=== PATIENT | male | born 1995 | race Caucasian/White ===

== ENCOUNTER 2018-09-22 08:33 | Emergency (ER) | payer BC ==
[~2018-09-22] VITALS: Ht 177.8 cm; Wt 111.2 kg
[2018-09-22 08:36] VITALS: Ht 177.8 cm; Wt 111.2 kg
[2018-09-22] MEDS ORDERED: SODIUM CHLORIDE 0.9% 1L BAG IV* STA (08:42)
[2018-09-22] MEDS ORDERED: KETOROLAC 15 MG INJ IV STA (08:42)
[2018-09-22] MEDS ORDERED: ACETAMINOPHEN 325 MG TAB PO ONE (09:00)
--- NOTE | 2018-09-22 09:48 | ERD ---
ER Documentation Chief Complaint Chief Complaint Pt presents with fever and R groin pain R L leg pain since last night HPI This is a 22-year-old male with no significant chronic past medical history who is presenting with 1 day of fever, feeling generally unwell, right-sided leg pain with lower leg redness and tenderness. The patient reports that this happened once before, and it was associated with a bug bite and cellulitis. He believes this is what is going on today. He does not endorse any alleviating or exacerbating factors. He does not recall being bit by a bug. The patient has had no headache or vision changes. The patient does not endorse neck or back pain. The patient denies lightheadedness or dizziness. The patient has had no chest pain or trouble breathing. The patient denies nausea or vomiting. The patient denies abdominal pain. The patient denies changes to bowel movements or urination. The patient has had no focal deficits. The patient has had no weakness or numbness or tingling to the face or extremities. ROS All systems reviewed and are negative except as per history of present illness. Medications Home Meds Discontinued Reported Medications [None] No Conflict Check 06/27/10 Allergies Allergies: Coded Allergies: No Known Allergies (Verified Allergy, Mild, 09/22/18) PMhx/Soc History of Surgery: Yes (Facial surgery) Anesthesia Reaction: No Hx Neurological Disorder: No Hx Respiratory Disorders: No Hx Cardiac Disorders: No Hx Psychiatric Problems: No Hx Miscellaneous Medical Probl: No Hx Alcohol Use: No Hx Substance Use: No Hx Tobacco Use: No FmHx Family History: No diabetes Physical Exam Vitals Vital Signs Date Temp Pulse Resp B/P (MAP) Pulse Ox O2 O2 Flow FiO2 Time Delivery Rate 09/22/18 Nasal 2 10:04 Cannula 09/22/18 102.2 124 20 141/76 98 08:36 (97) Physical Exam Const: No acute distress Head: Atraumatic Eyes: Normal Conjunctiva ENT: Normal External Ears, Nose and Mouth. Neck: Full range of motion. No meningismus. Resp: Clear to auscultation bilaterally Cardio: Regular rhythm, mild tachycardia, no murmurs Abd: Obese, soft, non tender, non distended. Normal bowel sounds Skin: No petechiae. 6 cm of erythema and tenderness to the right beaver, no induration or purulence or fluctuance. Back: No midline or flank tenderness Ext: No cyanosis, or edema Neur: Awake and alert Psych: Normal Mood and Affect Result Diagram: 09/22/18 0853 09/22/18 0853 Results 24 hrs Laboratory Tests Test 09/22/18 08:53 White Blood Count 17.4 10^3/ul Red Blood Count 5.68 10^6/ul Hemoglobin 15.9 g/dl Hematocrit 45.4 % Mean Corpuscular Volume 79.9 fl Mean Corpuscular Hemoglobin 28.0 pg Mean Corpuscular Hemoglobin Concent 35.0 g/dl Red Cell Distribution Width 12.9 % Platelet Count 250 10^3/UL Mean Platelet Volume 10.2 fl Immature Granulocytes % 0.500 % Neutrophils % 87.2 % Lymphocytes % 5.5 % Monocytes % 6.5 % Eosinophils % 0.1 % Basophils % 0.2 % Nucleated Red Blood Cells % 0.0 /100WBC Immature Granulocytes # 0.080 10^3/ul Neutrophils # 15.2 10^3/ul Lymphocytes # 1.0 10^3/ul Monocytes # 1.1 10^3/ul Eosinophils # 0.0 10^3/ul Basophils # 0.0 10^3/ul Nucleated Red Blood Cells # 0.0 10^3/ul Sodium Level 139 mmol/L Potassium Level 4.3 mmol/L Chloride Level 106 mmol/L Carbon Dioxide Level 27 mmol/L Anion Gap 6 Blood Urea Nitrogen 20 mg/dl Creatinine 0.80 mg/dl Est Glomerular Filtrat Rate mL/min > 60 mL/min Glucose Level 117 mg/dl POC Venous Lactate 1.5 mmol/L Calcium Level 9.3 mg/dl Total Bilirubin 1.1 mg/dl Direct Bilirubin 0.00 mg/dl Indirect Bilirubin 1.1 mg/dl Aspartate Amino Transf (AST/SGOT) 29 IU/L Alanine Aminotransferase (ALT/SGPT) 49 IU/L Alkaline Phosphatase 71 IU/L Total Protein 7.9 g/dl Albumin 4.2 g/dl Globulin 3.70 g/dl Albumin/Globulin Ratio 1.13 Current Medications Medications Dose Sig/Jermaine Start Time Status Last (Trade) Ordered Route PRN Stop Time Admin Dose Reason Admin Sodium 2,190 ml BOLUS OVER 2 09/22/18 DC 09/22/18 Chloride HOURS STAT 08:42 09/22/18 08:42 (NS) IV* 08:44 650 mg ONCE ONCE 5/9/19 DC 09/22/18 Acetaminophen PO 09:00 09/22/18 09:49 (Tylenol 09:01 Tab) Ketorolac 15 mg ONCE STAT 09/22/18 DC 09/22/18 Tromethamine IV 08:42 09/22/18 08:56 (Toradol) 08:44 Procedures/MDM MDM The patient's presentation warrants further investigation. Previous medical records, if available, were reviewed. LABS The patient's laboratory testing was obtained and reviewed. No emergent treatment was required unless described below. CBC: Leukocytosis with shift, concerning for an infection. No E/o anemia or thrombocytopenia Chemistry: No E/o severe acidosis or alkalosis or renal failure or liver disease or diabetic ketoacidosis Lactate: No E/o severe sepsis EKG EKG read by me: Rate/Rhythm: Sinus tachycardia at 112 bpm Intervals: Normal Mccormick: Normal Impression: No evidence of ischemia. Sinus tachycardia IMAGING Imaging and Radiology interpretation reviewed. CXR FINDINGS: The heart and mediastinum are within normal limits. The lungs are clear. There is no pleural effusion or pneumothorax. IMPRESSION: No acute disease Electronically viewed and signed by Dallin Ellsworth MD on 09/22/2018 08:58 TREATMENT/DISPOSITION Patient presents for symptoms concerning for possible cellulitis. The patient does have a leukocytosis and was mildly tachycardic. The patient did meet criteria for SIRS, so a septic work-up was completed. Patient does not have any evidence of endorgan damage. The patient's lactic acid is within normal limits. The patient does not have evidence of sepsis. The patient does not require inpatient evaluation. I do not see evidence of abscess. I do not see evidence of an alternative soft tissue infection. The patient has no lower extremity edema. He has not been bedbound for any reason. He does not have any history of DVT or PE. He is not on any hormonal medications. There is no reason to suspect DVT or thrombophlebitis. The patient was treated with IV fluids, Tylenol and Toradol in the emergency department with improvement of his temperature and heart rate. DISCHARGE Upon reevaluation of the patient, symptoms have improved. No emergent diagnoses were identified. At this time, I feel that the patient stable for discharge. The patient was instructed to follow-up with a primary care physician in 1-3 days. The patient will be given strict precautions with which to return to the emergency department. Prescriptions: Keflex, ibuprofen The patient's blood pressure was elevated at greater than 120/80 while in the emergency department. The patient was otherwise stable with no evidence of hypertensive urgency or emergency. The patient does not require admission for blood pressure control. I have discussed with the patient the risks of hypertension. I have instructed the patient to return to the ER for any new or worsening symptoms including chest pain, shortness of breath, headache, blurred vision, confusion, nausea, vomiting or LOC. I have advised the patient to follow up with the primary care physician for outpatient monitoring and treatment for h ypertension in 1-3 days. Disclaimer: Inadvertent spelling and grammatical errors are likely due to EHR/dictation software use and do not reflect on the overall quality of patient care. Note that the electronic time recorded on this note does not necessarily reflect the actual time of the patient encounter. Departure Diagnosis: Primary Impression: Cellulitis Site of cellulitis: extremity Site of cellulitis of extremity: lower extremity Laterality: right Qualified Codes: L03.115 - Cellulitis of right lower limb Additional Impressions: Fever Fever type: unspecified Qualified Codes: R50.9 - Fever, unspecified Tachycardia Leukocytosis Leukocytosis type: unspecified Qualified Codes: D72.829 - Elevated white blood cell count, unspecified Condition: Stable Patient Instructions: Cellulitis, Fever Control (Adult), Sinus Tachycardia Additional Instructions: Thank you for for coming to [facility] for your care today. Please ask your nurse or provider if you have questions about your care today and do not leave until all your questions have been answered. Please use any medications given as directed and follow-up with your doctor (or the doctor you were referred to) in the next 1-3 days. If you do not have a primary care doctor you may follow up at the [facility] or [facility] (listed below). You may also use motrin and tylenol as needed for fever and/or pain unless instructed otherwise by your provider or nurse. Indications for more urgent follow-up have been discussed, but you may return to the Emergency Department at ANY time for any worrisome or worsening symptoms. If you have abdominal pain, please know that no test or exam you received is perfect and you should follow up within 8 hours for continued pain. If you had any imaging studies today, such as an X-Ray or CT Scan, these studies will be reviewed later by a radiologist. You will be called if there are important findings that were not identified today, so make sure the contact information you provided at registration is correct. If you received any narcotic pain control medicine today, such as Vicodin, Morphine or Dilaudid, your coordination and judgment may be affected for a number of hours. Please do not drive or operate heavy machinery, and you may want someone to assist you at home. If you were given a prescription for narcotic medication, be aware that it is very addictive- use sparingly and only if necessary. PLEASE SEEK FURTHER EVALUATION AND MANAGEMENT AT YOUR DOCTORS OFFICE WITHIN THE NEXT 1-3 DAYS. IT IS YOUR RESPONSIBILITY TO MAKE AN APPOINTMENT FOR FOLOW-UP CARE. IF YOU HAVE A PRIMARY DOCTOR, PLEASE CALL THEIR OFFICE TO SCHEDULE AN APPOINTMENT FOR FOLLOW UP. IF YOU DO NOT HAVE A PRIMARY DOCTOR YOU CAN CALL OUR PHYSICIAN REFERRAL HOTLINE AT IF YOU CAN NOT AFFORD TO SEE A PHYSICIAN YOU CAN CHOSE FROM THE FOLLOWING [facility] CLINICS: [facility] [address] [facility]. [facility] [address] [facility] [facility] [address] [facility] [facility] [address] [facility] [facility] [address] [facility]. [facility]. [address] MAIN SHERMAN MD September 22, 2018 09:48
[2018-09-22] MEDS ORDERED: CEPH-443 PO (11:11)
[2018-09-22] MEDS ORDERED: ONDA8TAB9 PO (11:11)
[2018-09-22] MEDS ORDERED: IBUP-1542 PO (11:11)
[2018-09-22 11:26] VITALS: BP 115/55; PULSE 100; RESP 18
[2018-09-23] MEDS ORDERED: SULF1TAB31 PO (11:18)
== END 2018-09-22 11:28 | disposition home or self-care (01) ==
LOC: E/R 08:33
DX: L03.115 Cellulitis of right lower limb (principal); R50.9 Fever, unspecified; R00.0 Tachycardia, unspecified; D72.829 Elevated white blood cell count, unspecified
CPT/HCPCS: 36415; 71045; 80053; 83605; 85025; 87040; 93005; 96374; J1885; J7030; Z7502; Z7610

== ENCOUNTER 2018-09-23 09:04 | Emergency (ER) | payer BC ==
[~2018-09-23] VITALS: Ht 180.3 cm; Wt 130.0 kg
[~2018-09-23 09:04] MED LIST: CEPH-443 PO; IBUP-1542 PO; ONDA8TAB9 PO
[2018-09-23 09:05] VITALS: Ht 180.3 cm; Wt 130.0 kg
[2018-09-23] MEDS ORDERED: CEFTRIAXONE 1 GM/50 ML (PMX) 50 ML IVPB STA (09:31)
[2018-09-23] MEDS ORDERED: TRIMETHOPRIM/SULFAMETHOX (DS) TAB PO ONE (11:00)
[2018-09-23] MEDS ORDERED: SULF1TAB31 PO (11:18)
--- NOTE | 2018-09-23 11:21 | ERD ---
ER Documentation Chief Complaint Chief Complaint right leg/ upper thigh cellulits HPI 22-year-old male was seen here yesterday for some right beaver redness. He had a fever at that time. Negative lactate. He was discharged home with a prescription of Keflex. He did not receive IV antibiotics. Fever is resolved. There is some slight extension of the redness outside of the area marked and a new lesion on the right proximal thigh. He denies any chest pain, shortness of breath and otherwise pain is improved as well. She denies any lacerations, insect bites, inciting events. Patient had a leukocytosis of 17 yesterday. ROS All systems reviewed and are negative except as per history of present illness. Medications Home Meds Active Scripts Sulfamethoxazole/Trimethoprim* (Bactrim Ds* Tablet) 1 Each Tablet, 1 TAB PO BID for 7 Days, #14 TAB Prov:TRICIA RUIZ MD 09/23/18 Ondansetron Hcl* (Zofran*) 8 Mg Tablet, 8 MG PO Q6H PRN for NAUSEA AND OR VOMITING, #20 TAB Prov:MAIN MCKEON MD 09/22/18 Ibuprofen* (Motrin*) 600 Mg Tab, 600 MG PO Q6H PRN for PAIN AND OR ELEVATED TEMP, #30 TAB Prov:MAIN MCKEON MD 09/22/18 Cephalexin* (Keflex*) 500 Mg Capsule, 500 MG PO QID for 7 Days, CAP Prov:MAIN MCKEON MD 09/22/18 Discontinued Reported Medications [None] No Conflict Check 06/27/10 Allergies Allergies: Coded Allergies: No Known Allergies (Verified Allergy, Mild, 09/22/18) PMhx/Soc History of Surgery: Yes (Facial surgery) Anesthesia Reaction: No Hx Neurological Disorder: No Hx Respiratory Disorders: No Hx Cardiac Disorders: No Hx Psychiatric Problems: No Hx Miscellaneous Medical Probl: No Hx Alcohol Use: No Hx Substance Use: No Hx Tobacco Use: No FmHx Family History: No diabetes, No coronary disease, No other Physical Exam Vitals Vital Signs Date Temp Pulse Resp B/P (MAP) Pulse Ox O2 O2 Flow FiO2 Time Delivery Rate 09/23/18 98.8 96 19 119/59 99 09:05 (79) Physical Exam Const: No acute distress Head: Atraumatic Eyes: Normal Conjunctiva ENT: Normal External Ears, Nose and Mouth. Neck: Full range of motion. No meningismus. Resp: Clear to auscultation bilaterally Cardio: Regular rate and rhythm, no murmurs Abd: Soft, non tender, non distended. Normal bowel sounds Skin: No petechiae or rashes Back: No midline or flank tenderness Ext: No cyanosis, or edema. Redness and warmth approximately 4 cm on the right anterior beaver per there is a small area in the right proximal thigh as well. There is no fluctuance, streaking, induration, skin changes. Neur: Awake and alert Psych: Normal Mood and Affect Result Diagram: 09/23/1894009/23/18940 Results 24 hrs Laboratory Tests Test 09/23/18 09:41 White Blood Count 7.5 10^3/ul Red Blood Count 5.17 10^6/ul Hemoglobin 14.5 g/dl Hematocrit 41.9 % Mean Corpuscular Volume 81.0 fl Mean Corpuscular Hemoglobin 28.0 pg Mean Corpuscular Hemoglobin Concent 34.6 g/dl Red Cell Distribution Width 13.2 % Platelet Count 232 10^3/UL Mean Platelet Volume 9.9 fl Immature Granulocytes % 0.800 % Neutrophils % 67.8 % Lymphocytes % 21.6 % Monocytes % 8.5 % Eosinophils % 0.8 % Basophils % 0.5 % Nucleated Red Blood Cells % 0.0 /100WBC Immature Granulocytes # 0.060 10^3/ul Neutrophils # 5.1 10^3/ul Lymphocytes # 1.6 10^3/ul Monocytes # 0.6 10^3/ul Eosinophils # 0.1 10^3/ul Basophils # 0.0 10^3/ul Nucleated Red Blood Cells # 0.0 10^3/ul Sodium Level 142 mmol/L Potassium Level 4.2 mmol/L Chloride Level 107 mmol/L Carbon Dioxide Level 28 mmol/L Anion Gap 7 Blood Urea Nitrogen 13 mg/dl Creatinine 0.92 mg/dl Est Glomerular Filtrat Rate mL/min > 60 mL/min Glucose Level 126 mg/dl Calcium Level 9.0 mg/dl Total Bilirubin 1.2 mg/dl Direct Bilirubin 0.00 mg/dl Indirect Bilirubin 1.2 mg/dl Aspartate Amino Transf (AST/SGOT) 23 IU/L Alanine Aminotransferase (ALT/SGPT) 40 IU/L Alkaline Phosphatase 56 IU/L Total Protein 6.9 g/dl Albumin 3.7 g/dl Globulin 3.20 g/dl Albumin/Globulin Ratio 1.15 Current Medications Medications Dose Sig/Jermaine Start Time Status Last (Trade) Ordered Route PRN Stop Time Admin Dose Reason Admin Ceftriaxone 50 ml @ ONCE STAT 09/23/18 DC 09/23/18 Sodium 100 mls/hr IVPB 09:31 09:50 09/23/18 10:00 1 tab ONCE ONCE 09/23/18 DC 09/23/18 Trimethoprim/ PO 11:00 10:53 09/23/18 11:01 Sulfamethoxaz ole (Bactrim (Ds)) Procedures/MDM Patient presents for recheck of what appears to be cellulitis on the right lower extremity. There is no signs to suggest DVT, ischemia, abscess, sepsis currently. Patient has normal vitals without SIRS criteria. CBC is normal today. Patient is given Rocephin 1 g IV and Bactrim double strength by mouth. Patient does have cellulitis which is minimally improved and slightly extended beyond the line yesterday although additional constitutional symptoms are improved as well as leukocytosis. We will defer admission and patient will be discharged home with continuation of Keflex with addition of Bactrim and return precautions for worsening redness, fevers, new worsening symptoms. The patient was stable with no new complaints during the ER course. Clinically, there is no current evidence to suggest meningitis, sepsis, acute abdomen, pneumonia, stroke, acute coronary syndrome, pulmonary embolism, aortic dissection or any other emergent condition appearing to require further evaluation or hospitalization. Patient counseled regarding my diagnostic impression and care plan. Prior to discharge all questions answered. Pt agrees with treatment plan and understands strict return precautions. Pt is instructed to follow up with primary care provider within 24-48 hours. Precautionary instructions provided including instructions to return to the ER if not improving or for any worsening or changing symptoms or concerns. Disclaimer: Inadvertent spelling and grammatical errors are likely due to EHR/dictation software use and do not reflect on the overall quality of patient care. Also, please note that the electronic time recorded on this note does not necessarily reflect the actual time of the patient encounter. Departure Diagnosis: Primary Impression: Cellulitis Site of cellulitis: extremity Site of cellulitis of extremity: lower extremity Laterality: right Qualified Codes: L03.115 - Cellulitis of right lower limb Condition: Stable Patient Instructions: Cellulitis Additional Instructions: Recheck additional 2 days if no improvement, sooner for fevers, worsening redness, new or worsening symptoms. Elevate extremity at home. TRICIA RUIZ MD September 23, 2018 11:21
[2018-09-23 11:54] VITALS: BP 122/70; PULSE 98; RESP 18
== END 2018-09-23 11:55 | disposition home or self-care (01) ==
LOC: FTE 09:04
DX: L03.115 Cellulitis of right lower limb (principal)
CPT/HCPCS: 36415; 80053; 85025; 87040; 96374; J0696; Z7502; Z7610

== ENCOUNTER 2018-09-23 19:55 | Inpatient (IN) | payer BC ==
[~2018-09-23] VITALS: Ht 180.3 cm; Wt 111.4 kg
[~2018-09-23 19:55] MED LIST changes: +SULF1TAB31 PO
[2018-09-23 20:37] VITALS: Ht 180.3 cm; Wt 111.4 kg
[2018-09-23] MEDS ORDERED: VANCOMYCIN 1 GM (PMX) 250 ML IVPB STA (20:50)
[2018-09-23] MEDS ORDERED: SODIUM CHLORIDE 0.9% 1L BAG IV* STA (20:50)
[2018-09-23] MEDS ORDERED: PIPER-TAZO 3.375 GM IV (PMX) 100 ML IVPB STA (20:50)
[2018-09-23] MEDS ORDERED: CLINDAMYCIN 900 MG/D5W (PMX) 50 ML IVPB STA (20:50)
[2018-09-23] MEDS ORDERED: ACETAMINOPHEN 500 MG TAB PO STA (21:31)
[2018-09-23] MEDS ORDERED: KETOROLAC 15 MG INJ IV STA (22:27)
[2018-09-23] MEDS ORDERED: ACETAMINOPHEN 325 MG TAB PO PRN (22:30)
[2018-09-23] MEDS ORDERED: ONDANSETRON 4 MG INJ IV PRN (22:30)
--- NOTE | 2018-09-23 22:34 | ERD ---
ER Documentation Chief Complaint Chief Complaint WORSENING NAUSEA, HEADACHE, LOWER BACK PAIN S/P BUG BITE. WAS HERE EARLIER HPI 22-year-old male who presents to the emergency room with worsening headache nausea and pain to the right lower extremity. The patient was seen earlier today. He was being treated currently with oral antibiotics for cellulitis of the right lower extremity. It was documented that the redness had past the demarcation but the patient's laboratory testing was reassuring. He was received IV antibiotics and was discharged. He presents with persistent symptoms and now has streaking up his leg. He has some right inguinal erythema warmth and tenderness noted to the right lower extremity as well. No clear trigger to the infection he thinks a spider bite but no clear visualization of the insect bite is noted. He is not a diabetic. No recent trauma. ROS All systems reviewed and are negative except as per history of present illness. Medications Home Meds Active Scripts Sulfamethoxazole/Trimethoprim* (Bactrim Ds* Tablet) 1 Each Tablet, 1 TAB PO BID for 7 Days, #14 TAB Prov:TRICIA RUIZ MD 09/23/18 Ondansetron Hcl* (Zofran*) 8 Mg Tablet, 8 MG PO Q6H PRN for NAUSEA AND OR VOMITING, #20 TAB Prov:MAIN MCKEON MD 09/22/18 Ibuprofen* (Motrin*) 600 Mg Tab, 600 MG PO Q6H PRN for PAIN AND OR ELEVATED TEMP, #30 TAB Prov:MAIN MCKEON MD 09/22/18 Cephalexin* (Keflex*) 500 Mg Capsule, 500 MG PO QID for 7 Days, CAP Prov:MAIN MCKEON MD 09/22/18 Discontinued Reported Medications [None] No Conflict Check 06/27/10 Allergies Allergies: Coded Allergies: No Known Allergies (Verified Allergy, Mild, 09/22/18) PMhx/Soc History of Surgery: Yes (Facial surgery) Anesthesia Reaction: No Hx Neurological Disorder: No Hx Respiratory Disorders: No Hx Cardiac Disorders: No Hx Psychiatric Problems: No Hx Miscellaneous Medical Probl: No Hx Alcohol Use: No Hx Substance Use: No Hx Tobacco Use: No Smoking Status: Never smoker FmHx Family History: No diabetes Physical Exam Vitals Vital Signs Date Temp Pulse Resp B/P (MAP) Pulse Ox O2 O2 Flow FiO2 Time Delivery Rate 09/23/18 101.4 145 22 140/90 98 20:37 (107) Physical Exam General: Well developed, well nourished, no acute distress Head: Normocephalic, atraumatic. Eyes: Pupils equally reactive, EOM intact ENT: Moist mucous membranes Neck: Supple, no lymphadenopathy Respiratory: Lungs clear bilaterally, no distress Cardiovascular: tachy, no murmurs, rubs, or gallops Abdominal: Soft, non-tender, non-distended, no peritoneal signs : Deferred MSK: Right lower extremity around the beaver has evidence of erythema warmth and tenderness that has progressed past the demarcation. More proximally in the inguinal region the patient has erythema warmth and tenderness consistent with lymphangitic spread. No crepitus. Neurovascular intact distally. Neurologic: Alert and oriented, moving all extremities, normal speech, no focal weakness, no cerebellar signs Skin: No rash Psych: Normal mood Result Diagram: 09/23/18210209/23/182101 Results 24 hrs Laboratory Tests Test 09/23/18 20:58 09/23/18 21:02 09/23/18 21:03 09/23/18 21:05 POC Venous 2.1 mmol/L Lactate Sodium Level 140 mmol/L Potassium Level 3.3 mmol/L Chloride Level 109 mmol/L Carbon Dioxide 20 mmol/L Level Anion Gap 11 Blood Urea 16 mg/dl Nitrogen Creatinine 1.01 mg/dl Est Glomerular > 60 mL/min Filtrat Rate mL/min Glucose Level 121 mg/dl Calcium Level 8.9 mg/dl Total Bilirubin 0.8 mg/dl Direct Bilirubin 0.00 mg/dl Indirect 0.8 mg/dl Bilirubin Aspartate Amino 37 IU/L Transf (AST/SGOT ) Alanine 35 IU/L Aminotransferase (ALT/SGPT) Alkaline 76 IU/L Phosphatase Troponin I < 0.012 ng/ml Total Protein 7.1 g/dl Albumin 3.8 g/dl Globulin 3.30 g/dl Albumin/Globulin 1.15 Ratio White Blood 8.1 10^3/ul Count Red Blood Count 5.41 10^6/ul Hemoglobin 15.3 g/dl Hematocrit 43.6 % Mean Corpuscular 80.6 fl Volume Mean Corpuscular 28.3 pg Hemoglobin Mean Corpuscular 35.1 g/dl Hemoglobin Niya nt Red Cell 13.0 % Distribution Width Platelet Count 212 10^3/UL Mean Platelet 10.3 fl Volume Immature 1.000 % Granulocytes % Neutrophils % 92.8 % Lymphocytes % 3.4 % Monocytes % 2.0 % Eosinophils % 0.7 % Basophils % 0.1 % Nucleated Red 0.0 /100WBC Blood Cells % Immature 0.080 10^3/ul Granulocytes # Neutrophils # 7.5 10^3/ul Lymphocytes # 0.3 10^3/ul Monocytes # 0.2 10^3/ul Eosinophils # 0.1 10^3/ul Basophils # 0.0 10^3/ul Nucleated Red 0.0 10^3/ul Blood Cells # Prothrombin Time 11.8 Sec Prothrombin Time 0.9 Ratio INR 0.86 International Normalized Ratio Activated 26.7 Sec Partial Thrombop last Time Urine Color YELLOW Urine Clarity SLIGHTLY CLOUDY Urine pH 5.0 Urine Specific 1.033 [place] Urine Ketones NEGATIVE mg/dL Urine Nitrite NEGATIVE mg/dL Urine Bilirubin NEGATIVE mg/dL Urine 1+ mg/dL Urobilinogen Urine Leukocyte NEGATIVE Sera/ul Esterase Urine 4 /HPF Microscopic RBC Urine 3 /HPF Microscopic WBC Urine Mucus MODERATE /HPF Urine Hemoglobin NEGATIVE mg/dL Urine Glucose NEGATIVE mg/dL Urine Total 2+ mg/dl Protein Current Medications Medications Dose Sig/Jermaine Start Time Status Last (Trade) Ordered Route PRN Stop Time Admin Dose Reason Admin Sodium 2,910 ml BOLUS OVER 2 09/23/18 DC 09/23/18 Chloride HOURS STAT 20:50 21:02 (NS) IV* 09/23/18 20:51 Vancomycin 250 ml @ ONCE STAT 09/23/18 HCl 125 mls/hr IVPB 20:50 09/23/18 22:49 Clindamycin 50 ml @ 50 ONCE STAT 09/23/18 DC 09/23/18 HCl/ mls/hr IVPB 20:50 20:50 Dextrose 09/23/18 21:49 Piperacillin 100 ml @ ONCE STAT 09/23/18 DC 09/23/18 Sod/ 200 mls/hr IVPB 20:50 21:02 Tazobactam 09/23/18 21:19 Sod 1,000 mg ONCE STAT 09/23/18 DC Acetaminophen PO 21:31 (Tylenol 09/23/18 21:32 Tab) Ondansetron 4 mg BRIDGE ORDER 09/23/18 HCl (Zofran PRN IV 22:30 Inj) NAUSEA/VOMITI 09/24/18 22:29 NG 650 mg ER BRIDGE 09/23/18 Acetaminophen PRN PO 22:30 (Tylenol .MILD PAIN 09/24/18 22:29 Tab) 1-3 OR TEMP Procedures/MDM EKG, MONITORS, & DIAGNOSTIC IMAGING: CXR IMPRESSION: No evidence for active cardiopulmonary disease. RPTAT: UU LAB INTERPRETATION: I reviewed the laboratory testing and it shows POC LA 2.1 MEDICAL DECISION MAKING: Patient has evidence of lymphangitic spread of cellulitis of the right lower extremity with unclear trigger. The patient meets sirs criteria with source. This is consistent with sepsis. The patient has now failed outpatient antibiotics. Patient's lactic acid is elevated. No evidence of deep space infection. However broad-spectrum coverage would be appropriate. ER COURSE: * Antipyretics, 30/kg of saline, blood cultures prior to antibiotics. Broad- spectrum in the form of vancomycin, Zosyn, clindamycin. * Symptoms and vital signs are dramatically improved. No indication for central line or pressors. CONSULTATION: None DISPOSITION PLAN: Medical surgical admission for management of failed outpatient antibiotics for right lower extremity cellulitis accepting care team and consultations: I discussed the current laboratory data, diagnostic imaging and emergency care provided. Admitting team: Dr. Pérez Admitting team indication: Insurance directed Sepsis Documentation: Patient's infectious symptoms have not stabilized and the patient is at risk of rapid decompensation. The patient will be admitted for careful hydration, ant ibiotic therapy, and infectious source control. SEVERE SEPSIS CRITERIA: Infectious source: Right lower extremity cellulitis End organ damage indicated by: [Lactate > 2.0 mmol/L SEPSIS MANAGEMENT Time of recognition of sepsis: Upon MD assessment. Time of recognition of severe sepsis: 2057 Time of recognition of septic shock: No septic shock at this time. 3 HOUR BUNDLE Blood cultures x 2 before broad-spectrum antibiotics: Yes 30 ml/kg NS bolus completed Initial lactate 2.1 Repeat lactate pending repeat SEPTIC SHOCK ASSESSMENT: No lactic acid > 4.0 No persistent hypotension (SBP < 90 or 40 mmHg drop, MAP < 65) despite 30 mL/kg IV fluid bolus VOLUME REASSESSMENT FOR SEPTIC SHOCK: The patient does not meet criteria for septic shock in the emergency department at this time PERSISTENT HYPOTENSION TREATMENT: Comfort care no Central line not Required Vasopressor started not required I considered further perfusion assessment with CVP measurement, SCVO2, bedside ultrasound volume assessment, passive leg raise, trial of further fluid bolus. And proceeded with 30 ml/kg fluid bolus of NSS, broad spectrum antibiotics, and admission. CRITICAL CARE Critical care time 35 minutes Emergent fluid management while maintaining close respiratory support. Provision of immediate and broad-spectrum antibiotic therapy. Simultaneous assessment for possible sources in order to direct targeted therapy. Consideration for invasive and chemical support to prevent cardiopulmonary collapse. Critical care time is independent of procedures performed. Departure Diagnosis: Primary Impression: Severe sepsis Additional Impression: Cellulitis of right lower extremity Condition: KAELA Poon MD September 23, 2018 22:34
--- NOTE | 2018-09-23 23:40 | HP ---
Date/Time of Note Date/Time of Note DATE: 09/23/18 TIME: 23:40 Assessment/Plan VTE Prophylaxis Pharmacological prophylaxis: heparin Lines/Catheters IV Catheter Type (from Nrsg): Saline Lock Assessment/Plan Assessment/Plan 1. Right lower extremity cellulitis and right upper thigh/groin area cellulitis, likely representing lymphangitis -IV antibiotic -ID consult 2. Sepsis: As evidenced by fever and tachycardia: Secondary to above -IV antibiotic, IV fluid, trend lactate -Follow-up culture results 3. History of right malar fracture: Status post ORIF -No acute issue Result Diagram: 09/23/18210209/23/182101 Results 24hrs Laboratory Tests Test 09/23/18 20:58 09/23/18 21:02 09/23/18 21:03 09/23/18 21:05 POC Venous 2.1 *H Lactate Sodium Level 140 Potassium Level 3.3 L Chloride Level 109 Carbon Dioxide 20 L Level Anion Gap 11 Blood Urea 16 Nitrogen Creatinine 1.01 Est Glomerular > 60 Filtrat Rate mL/min Glucose Level 121 Calcium Level 8.9 Total Bilirubin 0.8 Direct Bilirubin 0.00 Indirect 0.8 Bilirubin Aspartate Amino 37 # Transf (AST/SGOT) Alanine 35 Aminotransferase (ALT/SGPT) Alkaline 76 Phosphatase Troponin I < 0.012 Total Protein 7.1 Albumin 3.8 Globulin 3.30 H Albumin/Globulin 1.15 Ratio White Blood Count 8.1 Red Blood Count 5.41 Hemoglobin 15.3 Hematocrit 43.6 Mean Corpuscular 80.6 L Volume Mean Corpuscular 28.3 L Hemoglobin Mean Corpuscular 35.1 Hemoglobin Concen t Red Cell 13.0 Distribution Width Platelet Count 212 Mean Platelet 10.3 Volume Immature 1.000 H Granulocytes % Neutrophils % 92.8 H Lymphocytes % 3.4 L Monocytes % 2.0 Eosinophils % 0.7 Basophils % 0.1 Nucleated Red 0.0 Blood Cells % Immature 0.080 H Granulocytes # Neutrophils # 7.5 Lymphocytes # 0.3 L Monocytes # 0.2 L Eosinophils # 0.1 Basophils # 0.0 Nucleated Red 0.0 Blood Cells # Prothrombin Time 11.8 L Prothrombin Time 0.9 Ratio INR International 0.86 Normalized Ratio Activated 26.7 Partial Thrombopl ast Time Urine Color YELLOW Urine Clarity SLIGHTLY CLOUDY A Urine pH 5.0 Urine Specific 1.033 H [place] Urine Ketones NEGATIVE Urine Nitrite NEGATIVE Urine Bilirubin NEGATIVE Urine 1+ H Urobilinogen Urine Leukocyte NEGATIVE Esterase Urine Microscopic 4 RBC Urine Microscopic 3 WBC Urine Mucus MODERATE Urine Hemoglobin NEGATIVE Urine Glucose NEGATIVE Urine Total 2+ H Protein HPI/ROS Admit Date/Time Admit Date/Time Hx of Present Illness This is a 22-year-old male with history of right malar complex fracture status post ORIF who presented to ER complaining of right beaver redness and swelling/tenderness. He initially came to the ER yesterday with similar complaints and was discharged with oral antibiotic. He came back earlier today and was again discharged from the ER. He came back for the third time with worsening condition, now developing erythema in the right upper thigh close to his groin area. He reported having had right lower extremity cellulitis several years ago. When he initially came yesterday he had a WBC of 17,000, now 8000. His temp today 111.4 with a heart rate of 145. Initial lactic acid 2.1 with repeat 1.8. PMH/Family/Social Past Medical History Medical History: other (See HPI) Medications Current Medications Ondansetron HCl (Zofran Inj) 4 mg BRIDGE ORDER PRN IV NAUSEA/VOMITING; Start 09/23/18 at 22:30; Stop 09/24/18 at 22:29 Acetaminophen (Tylenol Tab) 650 mg ER BRIDGE PRN PO .MILD PAIN 1-3 OR TEMP; Start 09/23/18 at 22:30; Stop 09/24/18 at 22:29 Coded Allergies: No Known Allergies (Verified Allergy, Mild, 09/22/18) Past Surgical History Past Surgical Hx: other (Right malar fracture, status post ORIF) Family History Significant Family History: no pertinent family hx Social History Alcohol Use: none Smoking Status: Never smoker Drug Use: none Exam/Review of Systems Vital Signs Vitals Vital Signs Date Temp Pulse Resp B/P (MAP) Pulse Ox O2 O2 Flow FiO2 Time Delivery Rate 09/23/18 98.5 107 22 124/79 100 Room Air 22:29 (94) Exam Constitutional: alert, oriented, well developed Head: normocephalic, atraumatic Eyes: EOMI, PERRL Respiratory: clear to auscultation, normal air movement Cardiovascular: other (Tachycardic regular rhythm) Gastrointestinal: soft, non-tender Extremities: other (Right lower extremity erythema and swelling) AMDE,JESSICA MD September 23, 2018 23:40
[2018-09-24] MEDS ORDERED: HYDROCODONE/APAP (5/325) TAB PO PRN ×2
[2018-09-24] MEDS ORDERED: NACL 0.9% 3 ML SYG IV SCH
[2018-09-24] MEDS ORDERED: VANCOMYCIN IV PER PHARMACY XX SCH
[2018-09-24] MEDS ORDERED: ONDANSETRON 4 MG INJ IV PRN
[2018-09-24] MEDS ORDERED: PIPER-TAZO 3.375 GM IV (PMX) 100 ML IVPB SCH
[2018-09-24] MEDS ORDERED: ALBUTEROL/IPRATROPIUM (NEB) 3 ML AMP HHN PRN
[2018-09-24 01:20] VITALS: BP 110/71; PULSE 115; RESP 18; BMI 34.2
[2018-09-24] MEDS: SOD CHLORIDE 0.9% 1,000 ML IV SCH ×3 (02:06→19:36)
[2018-09-24] MEDS: PIPER-TAZO 3.375 GM IV (PMX) 100 ML IVPB SCH ×5 (02:06→23:32)
[2018-09-24] MEDS ORDERED: POTASSIUM CHLORIDE (SR) 20 MEQ TAB PO ONE (02:28)
[2018-09-24] MEDS ORDERED: SOD CHLORIDE 0.9% 1,000 ML IV ONE (02:30)
[2018-09-24] MEDS: VANCOMYCIN HCL 1.25 GM in SOD CHLORIDE 0.9% 250 ML IVPB SCH ×3 (03:08→18:40)
[2018-09-24 07:40] VITALS: BP 94/54; PULSE 98; RESP 18
[2018-09-24] MEDS: ENOXAPARIN 40 MG/0.4 ML SYG SC SCH (09:19)
--- NOTE | 2018-09-24 09:26 | PN ---
Date/Time of Note Date/Time of Note DATE: 09/24/18 TIME: 09:23 Assessment/Plan VTE Prophylaxis SCD contraindicated: bilateral LE trauma Pharmacological prophylaxis: heparin Lines/Catheters IV [facility] Saline Lock Assessment/Plan Problems: (1) Severe sepsis Status: Acute Comment: Patient met criteria for sepsis on admission with fever tachycardia Reiger's thrombocytopenia etc. Expect that he will improved using aggressive IV antibiotics which include vancomycin. Please note he was on oral Bactrim as an outpatient but managed to get worse while on this. Cultures from 2 days ago are no growth so far. (2) Cellulitis of right lower extremity Status: Acute Comment: On aggressive IV antibiotic therapy. (3) Thrombocytopenia Status: Acute Comment: Noted recheck tomorrow (4) Acute hypokalemia Status: Acute Comment: Recheck potassium in a.m. (5) Elevated transaminase level Status: Acute Comment: Noted recheck tomorrow Result Diagram: 09/24/18 0338 09/24/18 0338 Results 24hrs Laboratory Tests Test 09/23/18 20:58 09/23/18 21:02 09/23/18 21:03 09/23/18 21:05 POC Venous 2.1 *H Lactate Sodium Level 140 Potassium Level 3.3 L Chloride Level 109 Carbon Dioxide 20 L Level Anion Gap 11 Blood Urea 16 Nitrogen Creatinine 1.01 Est Glomerular > 60 Filtrat Rate mL/min Glucose Level 121 Calcium Level 8.9 Total Bilirubin 0.8 Direct Bilirubin 0.00 Indirect 0.8 Bilirubin Aspartate Amino 37 # Transf (AST/SGOT) Alanine 35 Aminotransferase (ALT/SGPT) Alkaline 76 Phosphatase Troponin I < 0.012 Total Protein 7.1 Albumin 3.8 Globulin 3.30 H Albumin/Globulin 1.15 Ratio White Blood Count 8.1 Red Blood Count 5.41 Hemoglobin 15.3 Hematocrit 43.6 Mean Corpuscular 80.6 L Volume Mean Corpuscular 28.3 L Hemoglobin Mean Corpuscular 35.1 Hemoglobin Concen t Red Cell 13.0 Distribution Width Platelet Count 212 Mean Platelet 10.3 Volume Immature 1.000 H Granulocytes % Neutrophils % 92.8 H Lymphocytes % 3.4 L Monocytes % 2.0 Eosinophils % 0.7 Basophils % 0.1 Nucleated Red 0.0 Blood Cells % Immature 0.080 H Granulocytes # Neutrophils # 7.5 Lymphocytes # 0.3 L Monocytes # 0.2 L Eosinophils # 0.1 Basophils # 0.0 Nucleated Red 0.0 Blood Cells # Prothrombin Time 11.8 L Prothrombin Time 0.9 Ratio INR International 0.86 Normalized Ratio Activated 26.7 Partial Thrombopl ast Time Urine Color YELLOW Urine Clarity SLIGHTLY CLOUDY A Urine pH 5.0 Urine Specific 1.033 H [place] Urine Ketones NEGATIVE Urine Nitrite NEGATIVE Urine Bilirubin NEGATIVE Urine 1+ H Urobilinogen Urine Leukocyte NEGATIVE Esterase Urine Microscopic 4 RBC Urine Microscopic 3 WBC Urine Mucus MODERATE Urine Hemoglobin NEGATIVE Urine Glucose NEGATIVE Urine Total 2+ H Protein Test 09/23/18 23:46 09/24/18 03:38 Lactic Acid Level 1.8 1.0 White Blood Count 6.7 Red Blood Count 4.57 L Hemoglobin 12.9 L Hematocrit 36.8 L Mean Corpuscular 80.5 L Volume Mean Corpuscular 28.2 L Hemoglobin Mean Corpuscular 35.1 Hemoglobin Concen t Red Cell 13.1 Distribution Width Platelet Count 195 Mean Platelet 10.2 Volume Immature 1.400 H Granulocytes % Neutrophils % 92.6 H Lymphocytes % 1.8 L Monocytes % 2.6 Eosinophils % 1.4 Basophils % 0.2 Nucleated Red 0.0 Blood Cells % Immature 0.090 H Granulocytes # Neutrophils # 6.2 Lymphocytes # 0.1 L Monocytes # 0.2 L Eosinophils # 0.1 Basophils # 0.0 Nucleated Red 0.0 Blood Cells # Sodium Level 141 Potassium Level 3.6 Chloride Level 115 H Carbon Dioxide 20 L Level Anion Gap 6 Blood Urea 11 Nitrogen Creatinine 0.90 Est Glomerular > 60 Filtrat Rate mL/min Glucose Level 122 Hemoglobin A1c 5.0 Calcium Level 7.3 L Phosphorus Level 2.7 Magnesium Level 1.3 L Total Bilirubin 1.0 Direct Bilirubin 0.00 Indirect 1.0 Bilirubin Aspartate Amino 30 Transf (AST/SGOT) Alanine 49 Aminotransferase (ALT/SGPT) Alkaline 58 Phosphatase Total Protein 5.5 #L Albumin 2.7 #L Globulin 2.80 Albumin/Globulin 0.96 Ratio Triglycerides 80 Level Cholesterol Level 108 LDL Cholesterol, 58 Calculated HDL Cholesterol 34 Cholesterol/HDL 3.1 Ratio Subjective 24 Hr Interval Summary Free Text/Dictation Pleasant young male lying in bed. He reports that he is no longer having the shaking chills but still has fevers and headache. Constitutional: febrile Respiratory: no complaints Cardiovascular: no complaints Gastrointestinal: no complaints Genitourinary: no complaints Musculoskeletal: other (Right lower extremity swelling as well as inguinal discomfort) Exam/Review of Systems Exam Vitals Vital Signs Date Temp Pulse Resp B/P (MAP) Pulse Ox O2 O2 Flow FiO2 Time Delivery Rate 09/24/18 98.2 98 18 94/54 (67) 99 Room Air 07:40 Intake and Output 09/23/18 09/23/18 09/24/18 1515:00 23:00 07:00 IntakeIntake Total 1550 ml BalanceBalance 1550 ml Constitutional: alert, oriented Neck: supple, non-tender Respiratory: clear to auscultation, normal air movement Cardiovascular: regular rate and rhythm, nl pulses Gastrointestinal: soft, nl liver, spleen, non-tender Extremities: other (Right lower extremity cellulitis with lymphangitic spread into the groin) Results Results 24hrs Laboratory Tests Test 09/23/18 20:58 09/23/18 21:02 09/23/18 21:03 09/23/18 21:05 POC Venous 2.1 *H Lactate Sodium Level 140 Potassium Level 3.3 L Chloride Level 109 Carbon Dioxide 20 L Level Anion Gap 11 Blood Urea 16 Nitrogen Creatinine 1.01 Est Glomerular > 60 Filtrat Rate mL/min Glucose Level 121 Calcium Level 8.9 Total Bilirubin 0.8 Direct Bilirubin 0.00 Indirect 0.8 Bilirubin Aspartate Amino 37 # Transf (AST/SGOT) Alanine 35 Aminotransferase (ALT/SGPT) Alkaline 76 Phosphatase Troponin I < 0.012 Total Protein 7.1 Albumin 3.8 Globulin 3.30 H Albumin/Globulin 1.15 Ratio White Blood Count 8.1 Red Blood Count 5.41 Hemoglobin 15.3 Hematocrit 43.6 Mean Corpuscular 80.6 L Volume Mean Corpuscular 28.3 L Hemoglobin Mean Corpuscular 35.1 Hemoglobin Concen t Red Cell 13.0 Distribution Width Platelet Count 212 Mean Platelet 10.3 Volume Immature 1.000 H Granulocytes % Neutrophils % 92.8 H Lymphocytes % 3.4 L Monocytes % 2.0 Eosinophils % 0.7 Basophils % 0.1 Nucleated Red 0.0 Blood Cells % Immature 0.080 H Granulocytes # Neutrophils # 7.5 Lymphocytes # 0.3 L Monocytes # 0.2 L Eosinophils # 0.1 Basophils # 0.0 Nucleated Red 0.0 Blood Cells # Prothrombin Time 11.8 L Prothrombin Time 0.9 Ratio INR International 0.86 Normalized Ratio Activated 26.7 Partial Thrombopl ast Time Urine Color YELLOW Urine Clarity SLIGHTLY CLOUDY A Urine pH 5.0 Urine Specific 1.033 H [place] Urine Ketones NEGATIVE Urine Nitrite NEGATIVE Urine Bilirubin NEGATIVE Urine 1+ H Urobilinogen Urine Leukocyte NEGATIVE Esterase Urine Microscopic 4 RBC Urine Microscopic 3 WBC Urine Mucus MODERATE Urine Hemoglobin NEGATIVE Urine Glucose NEGATIVE Urine Total 2+ H Protein Test 09/23/18 23:46 09/24/18 03:38 Lactic Acid Level 1.8 1.0 White Blood Count 6.7 Red Blood Count 4.57 L Hemoglobin 12.9 L Hematocrit 36.8 L Mean Corpuscular 80.5 L Volume Mean Corpuscular 28.2 L Hemoglobin Mean Corpuscular 35.1 Hemoglobin Concen t Red Cell 13.1 Distribution Width Platelet Count 195 Mean Platelet 10.2 Volume Immature 1.400 H Granulocytes % Neutrophils % 92.6 H Lymphocytes % 1.8 L Monocytes % 2.6 Eosinophils % 1.4 Basophils % 0.2 Nucleated Red 0.0 Blood Cells % Immature 0.090 H Granulocytes # Neutrophils # 6.2 Lymphocytes # 0.1 L Monocytes # 0.2 L Eosinophils # 0.1 Basophils # 0.0 Nucleated Red 0.0 Blood Cells # Sodium Level 141 Potassium Level 3.6 Chloride Level 115 H Carbon Dioxide 20 L Level Anion Gap 6 Blood Urea 11 Nitrogen Creatinine 0.90 Est Glomerular > 60 Filtrat Rate mL/min Glucose Level 122 Hemoglobin A1c 5.0 Calcium Level 7.3 L Phosphorus Level 2.7 Magnesium Level 1.3 L Total Bilirubin 1.0 Direct Bilirubin 0.00 Indirect 1.0 Bilirubin Aspartate Amino 30 Transf (AST/SGOT) Alanine 49 Aminotransferase (ALT/SGPT) Alkaline 58 Phosphatase Total Protein 5.5 #L Albumin 2.7 #L Globulin 2.80 Albumin/Globulin 0.96 Ratio Triglycerides 80 Level Cholesterol Level 108 LDL Cholesterol, 58 Calculated HDL Cholesterol 34 Cholesterol/HDL 3.1 Ratio Medications Medication Current Medications Ondansetron HCl (Zofran Inj) 4 mg BRIDGE ORDER PRN IV NAUSEA/VOMITING; Start 09/23/18 at 22:30; Stop 09/24/18 at 22:29 Acetaminophen (Tylenol Tab) 650 mg ER BRIDGE PRN PO .MILD PAIN 1-3 OR TEMP; Start 09/23/18 at 22:30; Stop 09/24/18 at 22:29 Sodium Chloride 1,000 ml @ 100 mls/hr Q10H IV Last administered on 09/24/18at 02:06; Admin Dose 100 MLS/HR; Start 09/23/18 at 23:36 IV Flush (NS 3 ml) 3 ml PER PROTOCOL IV ; Start 09/24/18 at 00:00 Ondansetron HCl (Zofran Inj) 4 mg Q6H PRN IV NAUSEA/VOMITING Last administered on 09/24/18at 00:03; Admin Dose 4 MG; Start 09/24/18 at 00:00 Acetaminophen (Tylenol Tab) 650 mg Q6H PRN PO .PAIN 1-3 OR TEMP; Start 09/24/18 at 00:00 Acetaminophen/ Hydrocodone Bitart ([place] (5/325)) 1 tab Q6H PRN PO .MOD PAIN 4- 6; Start 09/24/18 at 00:00 Acetaminophen/ Hydrocodone Bitart ([place] (5/325)) 2 tab Q6H PRN PO .SEVERE PAIN 7-10; Start 09/24/18 at 00:00 Enoxaparin Sodium (Lovenox) 40 mg DAILY SC Last administered on 09/24/18at 09:19; Admin Dose 40 MG; Start 09/24/18 at 09:00 Albuterol/ Ipratropium (Duoneb) 3 ml Q2H RESP THERAPY PRN HHN SHORTNESS OF BREATH; Start 09/24/18 at 00:00 Vancomycin HCl (Vanco Iv Per Pharmacy) VANCOMYCIN PER PHARMACY PER PROTOCOL XX ; Start 09/24/18 at 00:00 Vancomycin HCl 1.25 gm/Sodium Chloride 250 ml @ 83.333 mls/ hr Q8H IVPB Last administered on 09/24/18at 03:08; Admin Dose 83.333 MLS/HR; Start 09/24/18 at 03:00 Piperacillin Sod/ Tazobactam Sod 100 ml @ 200 mls/hr Q6 IVPB Last administered on 09/24/18at 06:14; Admin Dose 200 MLS/HR; Start 09/24/18 at 02:00 Lactated Ringer's 500 ml @ 500 mls/hr Q1H ONCE IV ; Start 09/24/18 at 09:30; Stop 09/24/18 at 10:29 ANASTASIIA LÓPEZ MD September 24, 2018 09:26
[2018-09-24] MEDS ORDERED: LACTATED RINGER'S 500 ML IV ONE (09:30)
[2018-09-24 14:25] VITALS: BP 112/55; PULSE 112; RESP 16
[2018-09-24] MEDS: ACETAMINOPHEN 325 MG TAB PO PRN (18:12)
[2018-09-24 20:00] VITALS: BP 111/57; PULSE 107; RESP 16
[2018-09-24] MEDS ORDERED: MAGNESIUM SULFATE 4 GM/100 ML 100 ML IVPB ONE (23:00)
[2018-09-25 02:00] VITALS: BP 114/65; PULSE 99; RESP 18
[2018-09-25] MEDS: VANCOMYCIN HCL 1.25 GM in SOD CHLORIDE 0.9% 250 ML IVPB SCH (04:22)
[2018-09-25] MEDS: SOD CHLORIDE 0.9% 1,000 ML IV SCH ×2 (05:36→15:57)
[2018-09-25 07:53] VITALS: BP 118/59; PULSE 87; RESP 17
[2018-09-25] MEDS: PIPER-TAZO 3.375 GM IV (PMX) 100 ML IVPB SCH ×3 (08:05→21:39)
[2018-09-25] MEDS: ENOXAPARIN 40 MG/0.4 ML SYG SC SCH (08:06)
--- NOTE | 2018-09-25 08:22 | PN ---
Date/Time of Note Date/Time of Note DATE: 09/25/18 TIME: 08:21 Assessment/Plan VTE Prophylaxis Risk score (from [facility] [place])>0 risk: 3 SCD applied (from [facility] [place]): Yes Pharmacological prophylaxis: heparin Lines/Catheters IV Catheter Type (from [facility]): Peripheral IV Assessment/Plan Problems: (1) Cellulitis of right lower extremity Status: Acute Comment: Improving nicely. Continue with IV antibiotic therapy. Please note microbiology has not yet grown a bacteria (2) Severe sepsis Status: Resolved Comment: Symptoms of septicemia have resolved Result Diagram: 09/25/18 0210 09/25/18 0210 Results 24hrs Laboratory Tests Test 09/25/18 02:10 White Blood Count 5.6 Red Blood Count 4.60 L Hemoglobin 13.0 L Hematocrit 37.4 L Mean Corpuscular Volume 81.3 L Mean Corpuscular Hemoglobin 28.3 L Mean Corpuscular Hemoglobin Concent 34.8 Red Cell Distribution Width 13.1 Platelet Count 192 Mean Platelet Volume 9.8 Immature Granulocytes % 1.400 H Neutrophils % 65.1 Lymphocytes % 17.5 Monocytes % 7.2 Eosinophils % 8.4 H Basophils % 0.4 Nucleated Red Blood Cells % 0.0 Immature Granulocytes # 0.080 H Neutrophils # 3.6 Lymphocytes # 1.0 Monocytes # 0.4 Eosinophils # 0.5 Basophils # 0.0 Nucleated Red Blood Cells # 0.0 Erythrocyte Sedimentation Rate 90 H Sodium Level 141 Potassium Level 3.8 Chloride Level 112 H Carbon Dioxide Level 24 Anion Gap 5 Blood Urea Nitrogen 6 L Creatinine 0.96 Est Glomerular Filtrat Rate mL/min > 60 Glucose Level 123 Calcium Level 8.3 L Total Bilirubin 0.9 Direct Bilirubin 0.00 Indirect Bilirubin 0.9 Aspartate Amino Transf (AST/SGOT) 35 Alanine Aminotransferase (ALT/SGPT) 55 Alkaline Phosphatase 98 # Total Protein 6.2 Albumin 3.0 L Globulin 3.20 Albumin/Globulin Ratio 0.93 Vancomycin Level Trough 9.5 L Subjective 24 Hr Interval Summary Free Text/Dictation Patient reports he is feeling much better. Effervescing and less leg pain and less redness and less swelling Constitutional: no complaints (No shaking chills, no drenching sweats) Respiratory: no complaints Cardiovascular: no complaints Gastrointestinal: no complaints Skin: other (Still with some redness and warmth but improved) Exam/Review of Systems Exam Vitals Vital Signs Date Temp Pulse Resp B/P (MAP) Pulse Ox O2 O2 Flow FiO2 Time Delivery Rate 09/25/18 98.1 87 17 118/59 98 Room Air 07:53 (78) Intake and Output 09/24/18 09/24/18 09/25/18 1414:59 22:59 06:59 IntakeIntake Total 1260 ml 960 ml 425 ml BalanceBalance 1260 ml 960 ml 425 ml Constitutional: alert, oriented Cardiovascular: regular rate and rhythm, nl pulses Gastrointestinal: soft, nl liver, spleen, non-tender Extremities: other (Improved) Results Results 24hrs Laboratory Tests Test 09/25/18 02:10 White Blood Count 5.6 Red Blood Count 4.60 L Hemoglobin 13.0 L Hematocrit 37.4 L Mean Corpuscular Volume 81.3 L Mean Corpuscular Hemoglobin 28.3 L Mean Corpuscular Hemoglobin Concent 34.8 Red Cell Distribution Width 13.1 Platelet Count 192 Mean Platelet Volume 9.8 Immature Granulocytes % 1.400 H Neutrophils % 65.1 Lymphocytes % 17.5 Monocytes % 7.2 Eosinophils % 8.4 H Basophils % 0.4 Nucleated Red Blood Cells % 0.0 Immature Granulocytes # 0.080 H Neutrophils # 3.6 Lymphocytes # 1.0 Monocytes # 0.4 Eosinophils # 0.5 Basophils # 0.0 Nucleated Red Blood Cells # 0.0 Erythrocyte Sedimentation Rate 90 H Sodium Level 141 Potassium Level 3.8 Chloride Level 112 H Carbon Dioxide Level 24 Anion Gap 5 Blood Urea Nitrogen 6 L Creatinine 0.96 Est Glomerular Filtrat Rate mL/min > 60 Glucose Level 123 Calcium Level 8.3 L Total Bilirubin 0.9 Direct Bilirubin 0.00 Indirect Bilirubin 0.9 Aspartate Amino Transf (AST/SGOT) 35 Alanine Aminotransferase (ALT/SGPT) 55 Alkaline Phosphatase 98 # Total Protein 6.2 Albumin 3.0 L Globulin 3.20 Albumin/Globulin Ratio 0.93 Vancomycin Level Trough 9.5 L Medications Medication Current Medications Sodium Chloride 1,000 ml @ 100 mls/hr Q10H IV Last administered on 09/24/18at 02:06; Admin Dose 100 MLS/HR; Start 09/23/18 at 23:36 IV Flush (NS 3 ml) 3 ml PER PROTOCOL IV ; Start 09/24/18 at 00:00 Ondansetron HCl (Zofran Inj) 4 mg Q6H PRN IV NAUSEA/VOMITING Last administered on 09/24/18at 00:03; Admin Dose 4 MG; Start 09/24/18 at 00:00 Acetaminophen (Tylenol Tab) 650 mg Q6H PRN PO .PAIN 1-3 OR TEMP Last administered on 09/24/18at 18:12; Admin Dose 650 MG; Start 09/24/18 at 00:00 Acetaminophen/ Hydrocodone Bitart ([place] (5/325)) 1 tab Q6H PRN PO .MOD PAIN 4- 6; Start 09/24/18 at 00:00 Acetaminophen/ Hydrocodone Bitart ([place] (5/325)) 2 tab Q6H PRN PO .SEVERE PAIN 7-10; Start 09/24/18 at 00:00 Enoxaparin Sodium (Lovenox) 40 mg DAILY SC Last administered on 09/25/18at 08:06; Admin Dose 40 MG; Start 09/24/18 at 09:00 Albuterol/ Ipratropium (Duoneb) 3 ml Q2H RESP THERAPY PRN HHN SHORTNESS OF BREATH; Start 09/24/18 at 00:00 Vancomycin HCl (Vanco Iv Per Pharmacy) VANCOMYCIN PER PHARMACY PER PROTOCOL XX ; Start 09/24/18 at 00:00 Piperacillin Sod/ Tazobactam Sod 100 ml @ 200 mls/hr Q6 IVPB Last administered on 09/25/18at 08:05; Admin Dose 200 MLS/HR; Start 09/24/18 at 02:00 Vancomycin HCl 1.5 gm/Sodium Chloride 250 ml @ 83.333 mls/ hr Q8H IVPB ; Start 09/25/18 at 11:00 ANASTASIIA LÓPEZ MD September 25, 2018 08:22
[2018-09-25] MEDS: VANCOMYCIN HCL 1.5 GM in SOD CHLORIDE 0.9% 250 ML IVPB SCH ×2 (11:24→18:32)
[2018-09-25] MEDS ORDERED: PIPER-TAZO 3.375 GM IV (PMX) 100 ML IVPB SCH (12:30)
[2018-09-25] MEDS: ACETAMINOPHEN 325 MG TAB PO PRN (20:00)
[2018-09-25 20:19] VITALS: BP 122/70; PULSE 76; RESP 17
[2018-09-26] MEDS: SOD CHLORIDE 0.9% 1,000 ML IV SCH ×3 (01:36→21:36)
[2018-09-26 02:00] VITALS: BP 116/70; PULSE 65; RESP 17
[2018-09-26] MEDS: PIPER-TAZO 3.375 GM IV (PMX) 100 ML IVPB SCH ×4 (02:16→22:02)
[2018-09-26] MEDS: VANCOMYCIN HCL 1.5 GM in SOD CHLORIDE 0.9% 250 ML IVPB SCH ×3 (03:09→18:49)
[2018-09-26 08:11] VITALS: BP 118/67; PULSE 75; RESP 17
[2018-09-26] MEDS: ENOXAPARIN 40 MG/0.4 ML SYG SC SCH (09:14)
[2018-09-26 14:57] VITALS: BP 132/66; PULSE 71; RESP 18
--- NOTE | 2018-09-26 15:22 | PN ---
Date/Time of Note Date/Time of Note DATE: 09/26/18 TIME: 15:21 Assessment/Plan VTE Prophylaxis Risk score (from [facility])>0 risk: 2 SCD applied (from [facility]): No SCD contraindicated: other Pharmacological prophylaxis: LMWH Lines/Catheters IV Catheter Type (from [facility]): Peripheral IV Assessment/Plan Hospital Course SUBJECTIVE: Remains afebrile. Right lower extremity pain well controlled. OBJECTIVE: Physical Exam General: Obese, 22year-old male lying in bed in no apparent distress. HEENT: Normocephalic, atraumatic. Eyes: Anicteric sclerae, conjunctivae clear. ENT: Nasal septum midline, oral mucosa moist. Neck supple, no JVD noticed. Respiratory: Bilaterally clear breath sounds. No use of accessory muscles of respiration. No adventitious breath sounds. Cardiovascular: S1, S2 heard. Regular rate and rhythm. Abdomen: Soft, nontender, and nondistended. Bowel sounds positive in all 4 quadrants. Genitourinary: Deferred. Extremities: No cyanosis, no clubbing, no edema. Peripheral pulses palpable. Neurologic: Cranial nerves II through XII grossly intact. The patient is awake, alert, and oriented. Skin: Normal skin turgor. Right beaver area erythema. Right thigh area erythema. No fluctuance. Labs & Vitals per chart ASSESSMENT & PLAN 22-year-old male with morbid obesity and prior history of right lower extremity cellulitis who presented to the emergency room with right lower extremity and lower back pain, who was being treated for right lower extremity cellulitis with oral medications. The patient was noticed to have sepsis with febrile illness, tachycardia, and lactic acidosis. Therefore, the patient was admitted to inpatient setting for further treatment and evaluation. 1. Right lower extremity cellulitis. -Continue antimicrobials including coverage for MRSA. 2. Sepsis with febrile illness, lactic acidosis, tachycardia, present on admission. -Etiology could be secondary to underlying right lower extremity cellulitis. -Pancultures negative. -Continue antimicrobials. 3. Obesity. -BMI more than 34 kg/m. -A1c and fasting lipid panel within normal limits. 4. Fluids, electrolytes, and nutrition. -Low-cholesterol diet. 5. DVT prophylaxis. -Subcutaneous Lovenox 6. Plan. -Continue IV antimicrobials. -Await clinical improvement before discharging the patient home. The patient was seen in collaboration with Dr. Lebron. Result Diagram: 09/26/1830 09/26/18 0530 Results 24hrs Laboratory Tests Test 09/26/18 05:30 White Blood Count 4.6 L Red Blood Count 4.71 Hemoglobin 13.1 L Hematocrit 38.4 L Mean Corpuscular Volume 81.5 L Mean Corpuscular Hemoglobin 27.8 L Mean Corpuscular Hemoglobin Concent 34.1 Red Cell Distribution Width 12.8 Platelet Count 242 # Mean Platelet Volume 9.9 Immature Granulocytes % 1.100 H Neutrophils % 41.7 Lymphocytes % 36.1 Monocytes % 11.5 H Eosinophils % 8.9 H Basophils % 0.7 Nucleated Red Blood Cells % 0.0 Immature Granulocytes # 0.050 H Neutrophils # 1.9 Lymphocytes # 1.7 Monocytes # 0.5 Eosinophils # 0.4 Basophils # 0.0 Nucleated Red Blood Cells # 0.0 Sodium Level 143 Potassium Level 4.1 Chloride Level 109 Carbon Dioxide Level 26 Anion Gap 8 Blood Urea Nitrogen 6 L Creatinine 0.78 Est Glomerular Filtrat Rate mL/min > 60 Glucose Level 104 Calcium Level 8.9 Magnesium Level 1.8 Total Bilirubin 0.6 Direct Bilirubin 0.00 Indirect Bilirubin 0.6 Aspartate Amino Transf (AST/SGOT) 42 Alanine Aminotransferase (ALT/SGPT) 66 Alkaline Phosphatase 83 Total Protein 6.6 Albumin 3.2 L Globulin 3.40 H Albumin/Globulin Ratio 0.94 Exam/Review of Systems Exam Vitals Vital Signs Date Temp Pulse Resp B/P (MAP) Pulse Ox O2 O2 Flow FiO2 Time Delivery Rate 09/26/18 98.1 71 18 132/66 99 Room Air 14:57 (88) Intake and Output 09/25/18 09/25/18 09/26/18 1515:00 23:00 07:00 IntakeIntake Total 575 ml 1500 ml 750 ml BalanceBalance 575 ml 1500 ml 750 ml Results Results 24hrs Laboratory Tests Test 09/26/18 05:30 White Blood Count 4.6 L Red Blood Count 4.71 Hemoglobin 13.1 L Hematocrit 38.4 L Mean Corpuscular Volume 81.5 L Mean Corpuscular Hemoglobin 27.8 L Mean Corpuscular Hemoglobin Concent 34.1 Red Cell Distribution Width 12.8 Platelet Count 242 # Mean Platelet Volume 9.9 Immature Granulocytes % 1.100 H Neutrophils % 41.7 Lymphocytes % 36.1 Monocytes % 11.5 H Eosinophils % 8.9 H Basophils % 0.7 Nucleated Red Blood Cells % 0.0 Immature Granulocytes # 0.050 H Neutrophils # 1.9 Lymphocytes # 1.7 Monocytes # 0.5 Eosinophils # 0.4 Basophils # 0.0 Nucleated Red Blood Cells # 0.0 Sodium Level 143 Potassium Level 4.1 Chloride Level 109 Carbon Dioxide Level 26 Anion Gap 8 Blood Urea Nitrogen 6 L Creatinine 0.78 Est Glomerular Filtrat Rate mL/min > 60 Glucose Level 104 Calcium Level 8.9 Magnesium Level 1.8 Total Bilirubin 0.6 Direct Bilirubin 0.00 Indirect Bilirubin 0.6 Aspartate Amino Transf (AST/SGOT) 42 Alanine Aminotransferase (ALT/SGPT) 66 Alkaline Phosphatase 83 Total Protein 6.6 Albumin 3.2 L Globulin 3.40 H Albumin/Globulin Ratio 0.94 Medications Medication Current Medications Sodium Chloride 1,000 ml @ 100 mls/hr Q10H IV Last administered on 09/26/18at 09:19; Admin Dose 100 MLS/HR; Start 09/23/18 at 23:36 IV Flush (NS 3 ml) 3 ml PER PROTOCOL IV ; Start 09/24/18 at 00:00 Ondansetron HCl (Zofran Inj) 4 mg Q6H PRN IV NAUSEA/VOMITING Last administered on 09/24/18at 00:03; Admin Dose 4 MG; Start 09/24/18 at 00:00 Acetaminophen (Tylenol Tab) 650 mg Q6H PRN PO .PAIN 1-3 OR TEMP Last administered on 09/25/18at 20:00; Admin Dose 650 MG; Start 09/24/18 at 00:00 Acetaminophen/ Hydrocodone Bitart ([place] (5/325)) 1 tab Q6H PRN PO .MOD PAIN 4- 6; Start 09/24/18 at 00:00 Acetaminophen/ Hydrocodone Bitart ([place] (5/325)) 2 tab Q6H PRN PO .SEVERE PAIN 7-10; Start 09/24/18 at 00:00 Enoxaparin Sodium (Lovenox) 40 mg DAILY SC Last administered on 09/26/18at 09 :14; Admin Dose 40 MG; Start 09/24/18 at 09:00 Albuterol/ Ipratropium (Duoneb) 3 ml Q2H RESP THERAPY PRN HHN SHORTNESS OF BREATH; Start 09/24/18 at 00:00 Vancomycin HCl (Vanco Iv Per Pharmacy) VANCOMYCIN PER PHARMACY PER PROTOCOL XX ; Start 09/24/18 at 00:00 Vancomycin HCl 1.5 gm/Sodium Chloride 250 ml @ 83.333 mls/ hr Q8H IVPB Last administered on 09/26/18at 11:12; Admin Dose 83.333 MLS/HR; Start 09/25/18 at 11:00 Piperacillin Sod/ Tazobactam Sod 100 ml @ 200 mls/hr Q6H IVPB Last administer ed on 09/26/18at 15:02; Admin Dose 200 MLS/HR; Start 09/25/18 at 14:00 Miscellaneous Information (*Rx Drug Level Order Reminder*) 1 1800 ONCE XX ; Start 09/26/18 at 18:00; Stop 09/26/18 at 18:01 CATHLEEN MALONE NP September 26, 2018 15:22
[2018-09-26 20:00] VITALS: BP 110/62; PULSE 74; RESP 19
[2018-09-27 02:00] VITALS: BP 112/66; PULSE 59; RESP 19
[2018-09-27] MEDS: PIPER-TAZO 3.375 GM IV (PMX) 100 ML IVPB SCH ×3 (02:48→14:15)
[2018-09-27] MEDS: VANCOMYCIN HCL 1.5 GM in SOD CHLORIDE 0.9% 250 ML IVPB SCH ×2 (03:26→10:43)
[2018-09-27 07:40] VITALS: BP 116/56; PULSE 62; RESP 18
[2018-09-27] MEDS: ENOXAPARIN 40 MG/0.4 ML SYG SC SCH (08:47)
[2018-09-27 14:25] VITALS: BP 140/86; PULSE 78; RESP 16
[2018-09-27] MEDS ORDERED: DOXY100T20 PO (15:47)
--- NOTE | 2018-09-27 15:51 | PDOCDIS ---
Discharge Instructions CONDITION [id number] Patient Condition: [id number] Stable HOME CARE INSTRUCTIONS: [id number] Diet Instructions: [id number] Regular OTHER ORDERS: Other Orders: 1. Complete the course of antibiotics. 2. Take a regular, preferably low cholesterol diet. 3. Resume activities as tolerated. 4. Please go to the nearest ER if you have worsening redness of the right leg, persistent fevers, or any other unusual signs/symptoms. CATHLEEN MALONE NP September 27, 2018 15:50
--- NOTE | 2018-09-27 18:33 | DS ---
Date/Time of Note Date/Time of Note DATE: 09/27/18 TIME: 18:32 Discharge Summary Admission/Discharge Info Admit Date/Time September 23, 2018 at 22:26 Discharge Date/Time September 27, 2018 at 17:05 Discharge Diagnosis 1. Right lower extremity cellulitis. 2. S/P sepsis with febrile illness, lactic acidosis, tachycardia, present on admission. 3. Obesity. BMI more than 34 kg/m. Patient Condition: Stable Procedures CXR IMPRESSION: No evidence for active cardiopulmonary disease. Hx of Present Illness This is a 22-year-old male with morbid obesity and prior history of right lower extremity cellulitis who presented to the emergency room with right lower extremity and lower back pain, who was being treated for right lower extremity cellulitis with oral medications. The patient was noticed to have sepsis with febrile illness, tachycardia, and lactic acidosis. Therefore, the patient was admitted to inpatient setting for further treatment and evaluation. Hospital Course The patient was initially discharged from emergency room with oral antibiotics that was obviously not managing his symptoms. The patient was noticed to have evidence of sepsis with febrile illness, lactic acidosis, and tachycardia present on admission. Therefore, the patient was started on antimicrobial therapy including coverage for MRSA. The patient's sepsis could have been most probably secondary to his right lower extremity cellulitis. The patient's cultures remained negative. Etiology of the patient's right lower extremity cellulitis remains unclear. The patient denied any evidence of insect bites. However, he verbalized prior history of cellulitis. The patient is nondiabetic. The patient's hemoglobin A1c was within normal limits. The patient responded well to antimicrobial therapy. Therefore, the patient will be switched to oral antimicrobial therapy different from the antimicrobial that he received at the emergency room. The patient is also morbidly obese with a BMI of more than 34 kg/m. He was advised on weight reduction. The patient had a stable hospital course. The patient is stable to be discharged home. Discharge Instructions 1. Complete the course of antibiotics. 2. Take a regular, preferably low cholesterol diet. 3. Resume activities as tolerated. 4. Please go to the nearest ER if you have worsening redness of the right leg, persistent fevers, or any other unusual signs/symptoms. The patient verbalized understanding of his discharge instructions. The patient was seen in collaboration with Dr. Lebron. Home Meds Active Scripts Doxycycline Hyclate* (Doxycycline Hyclate*) 100 Mg Tablet., 100 MG PO BID for 10 Days, #20 TAB Prov:CATHLEEN MALONE NP 09/27/18 Discontinued Reported Medications [None] No Conflict Check 06/27/10 Discontinued Scripts Sulfamethoxazole/Trimethoprim* (Bactrim Ds* Tablet) 1 Each Tablet, 1 TAB PO BID for 7 Days, #14 TAB Prov:TRICIA RUIZ MD 09/23/18 Ondansetron Hcl* (Zofran*) 8 Mg Tablet, 8 MG PO Q6H PRN for NAUSEA AND OR VOMITING, #20 TAB Prov:MAIN MCKEON MD 09/22/18 Ibuprofen* (Motrin*) 600 Mg Tab, 600 MG PO Q6H PRN for PAIN AND OR ELEVATED TEMP, #30 TAB Prov:MAIN MCKEON MD 09/22/18 Cephalexin* (Keflex*) 500 Mg Capsule, 500 MG PO QID for 7 Days, CAP Prov:MAIN MCKOEN MD 09/22/18 Primary Care Provider Not On Staff Doctor Pending Labs Laboratory Tests Test 09/27/18 05:08 White Blood Count 5.0 10^3/ul (4.8-10.8) Red Blood Count 5.02 10^6/ul (4.70-6.10) Hemoglobin 14.0 g/dl (14.0-18.0) Hematocrit 40.0 % (42.0-52.0) Mean Corpuscular Volume 79.7 fl (82.0-101.0) Mean Corpuscular Hemoglobin 27.9 pg (29.0-33.0) Mean Corpuscular Hemoglobin Concent 35.0 g/dl (32.0-37.0) Red Cell Distribution Width 12.9 % (11.5-14.5) Platelet Count 285 10^3/UL (140-415) Mean Platelet Volume 10.0 fl (7.4-10.4) Immature Granulocytes % 1.400 % (0.001-0.429) Neutrophils % 45.8 % (39.0-77.0) Lymphocytes % 40.1 % (15.0-51.0) Monocytes % 8.1 % (0.0-11.0) Eosinophils % 4.2 % (0.0-7.0) Basophils % 0.4 % (0.0-2.0) Nucleated Red Blood Cells % 0.0 /100WBC (0.0-0.0) Immature Granulocytes # 0.070 10^3/ul (0.0-0.031) Neutrophils # 2.3 10^3/ul (1.6-7.5) Lymphocytes # 2.0 10^3/ul (0.8-2.9) Monocytes # 0.4 10^3/ul (0.3-0.9) Eosinophils # 0.2 10^3/ul (0.0-0.5) Basophils # 0.0 10^3/ul (0.0-0.1) Nucleated Red Blood Cells # 0.0 10^3/ul (0.0-0.0) Erythrocyte Sedimentation Rate 78 mm/Hr (0-15) Sodium Level 141 mmol/L (135-144) Potassium Level 4.1 mmol/L (3.5-5.1) Chloride Level 108 mmol/L (97-110) Carbon Dioxide Level 28 mmol/L (21-31) Anion Gap 5 (5-13) Blood Urea Nitrogen 13 mg/dl (7-20) Creatinine 0.88 mg/dl (0.61-1.24) Est Glomerular Filtrat Rate mL/min > 60 mL/min (>60) Glucose Level 107 mg/dl (70-220) Calcium Level 8.9 mg/dl (8.4-10.2) Phosphorus Level 5.1 mg/dl (2.5-4.9) Magnesium Level 1.7 mg/dl (1.7-2.5) C-Reactive Protein 1.8 mg/dl (0.0-0.9) CATHLEEN MALONE NP September 27, 2018 18:33
== END 2018-09-27 17:05 | disposition home or self-care (01) | DRG 872 ==
LOC: E/R 19:55 → PP2 22:26
PROVIDERS: ADMIT Internal Medicine; ATTEND Internal Medicine
DX: A41.9 Sepsis, unspecified organism (principal); L03.115 Cellulitis of right lower limb; E87.2 Acidosis; R65.20 Severe sepsis without septic shock; D69.6 Thrombocytopenia, unspecified; E87.6 Hypokalemia; Z87.81 Personal history of (healed) traumatic fracture; Z68.34 Body mass index [BMI] 34.0-34.9, adult; E66.01 Morbid (severe) obesity due to excess calories
CPT/HCPCS: 36415; 71045; 80048; 80053; 80061; 80202; 81001; 83036; 83605; 83735; 84100; 84484; 85025; 85610; 85651; 85730; 86140; 87086; 93005; 96365; 96366; 96368; 96375; J1650; J1885; J2405; J2543; J3370; J7030; J7050; J7120